=== PATIENT | male | born 1950 | race African-American/Black ===

== ENCOUNTER → 2023-06-29 | Outpatient (CLI) | payer OTHER, SELFPAY ==
--- NOTE | 2023-06-29 08:10 | ECHOD_ITS ---
Reason For Study: ISCHEMIC HEART DISEASE Procedure This was a 2D Doppler, Color Flow transthoracic echocardiogram. Exam performed in department. Left Ventricle Normal LV size. Left ventricular systolic function is normal. The estimated ejection fraction is 55 %. Stage 1 diastolic dysfunction. No regional wall motion abnormalities noted. Right Ventricle Normal RV size. Normal systolic function. Atria Normal left atrium. Normal right atrium. Hypermobile atrial septum. Bubble contrast study negative for right to left interatrial shunt. Tricuspid Valve Normal tricuspid valve. Mild (1+) tricuspid valve insufficiency. Great Vessels Normal aortic root. The pulmonary artery is normal size. Normal inferior vena cava. Pericardium/Pleural No pericardial effusion. Medication 22 gauge I.V. with prn adaptor inserted into left arm. Performed a rapid injection of agitated mix of 9 cc saline and 1cc air to assess for atrial septal defect. MMode/2D Measurements & Calculations LVIDd: 4.3 cm IVSd: 0.94 cm LVOT diam: 2.0 cm LVIDs: 2.8 cm LVPWd: 0.94 cm LVOT area: 3.1 cm2 RVDd: 3.6 cm FS: 34.9 % Ao root diam: 3.8 cm LAV(MOD-bp): 43.0 ml LVAd ap4: 29.3 cm2 LAV(MOD-bp) Indexed: 20.2 ml/m2 LVLd ap4: 7.9 cm LAV(MOD-sp2): 39.1 ml EDV(MOD-sp4): 89.8 ml LAV(MOD-sp4): 44.5 ml EDV(sp4-el): 92.4 ml LVAs ap4: 16.2 cm2 LVLs ap4: 6.3 cm ESV(MOD-sp4): 34.5 ml ESV(sp4-el): 35.2 ml EF(MOD-sp4): 61.5 % EF(sp4-el): 61.9 % SV(MOD-sp4): 55.2 ml SV(MOD-sp2): 47.9 ml LVAd ap2: 26.1 cm2 LVLd ap2: 7.1 cm EDV(MOD-sp2): 78.0 ml EDV(sp2-el): 81.2 ml LVAs ap2: 15.2 cm2 LVLs ap2: 6.6 cm ESV(MOD-sp2): 30.1 ml ESV(sp2-el): 30.0 ml EF(MOD-sp2): 61.4 % SV(sp4-el): 57.1 ml LA A4 area: 17.7 cm2 LA dimension(2D): 3.9 cm TAPSE: 1.9 cm RA A4 area: 16.4 cm2 Time Measurements MV dec time: 0.19 sec Doppler Measurements & Calculations MV E max lane: 65.3 cm/sec Lat Peak E' Lane: 7.9 cm/sec Med Peak E' Lane: 6.5 cm/sec MV A max lane: 86.1 cm/sec E/E' lat: 8.2 E/E' med: 10.1 MV E/A: 0.76 MV dec slope: 342.8 cm/sec2 Ao V2 max: 112.1 cm/sec LV V1 max: 85.4 cm/sec Ao max P.0 mmHg LV V1 max P.9 mmHg Ao V2 mean: 74.7 cm/sec LV V1 mean P.6 mmHg Ao mean P.6 mmHg LV V1 mean: 59.4 cm/sec Ao V2 VTI: 25.8 cm LV V1 VTI: 20.2 cm AV (velocity ratio): 0.78 MAREN(I,D): 2.4 cm2 MAREN(V,D): 2.4 cm2 SV(LVOT): 63.0 ml PA V2 max: 96.5 cm/sec PI end-d lane: 107.0 cm/sec PA max PG (full): 2.[address] max lane: 217.4 cm/sec TR max P.9 mmHg ECHO/Echo Complete Interpretation Summary Hypermobile atrial septum. Normal LV size. Left ventricular systolic function is normal. The estimated ejection fraction is 55 %. Stage 1 diastolic dysfunction. Bubble contrast study negative for right to left interatrial shunt. Ordering Physician: Edgard Sharpe Performed By: Cathi Lee RDCS
[2023-06-29 09:26] LABS: Color, Urine Yellow (Yellow); Glucose, Dipstick Normal (Normal); Ketone-Dipstick Negative (Negative); Leukocyte Esterase-Dipstick Negative /ul (Negative); Nitrite-Dipstick Negative (Negative); Occult Blood-Urine Negative /ul (Negative); Protein-Dipstick Negative (Negative); Specific Gravity, Urine 1.015 (1.002-1.030); Urine Bilirubin Dipstick Negative (Negative); Urine Clarity Clear (Clear); Urine Urobilinogen Normal (Normal)
[2023-06-29 10:03] LABS: AST(SGOT) 28 U/L (15-37); Alanine Aminotransfer ALT/SGPT 27 U/L (16-61); Albumin, Serum 3.9 g/dL (3.2-5.0); Alkaline Phosphatase 60 U/L (45-117); Anion Gap 3 (5-15); BUN 17 mg/dL (7-18); BUN/Creat Ratio 14.5 RATIO (10-20); Calcium,Total 9.1 mg/dL (8.5-10.1); Chloride 105 mmol/L (98-107); Creatinine, Serum 1.17 mg/dL (0.70-1.30); EST Glomerular Filtration Rate 65 mL/min (>60); Est Glom Filt Rate - Afr Amer 78 mL/min (>60); Glucose 170 mg/dL (74-106); Potassium 4.2 mmol/L (3.5-5.1); Protein, Total 7.9 g/dL (6.4-8.2); Sodium Level 137 mmol/L (136-145)
== END | disposition home or self-care (01) ==
LOC: CVS 08:08
PROVIDERS: Visit Provider Chiropractor
DX: E11.9 Type 2 diabetes mellitus without complications (principal); I25.9 Chronic ischemic heart disease, unspecified; Q21.19 Other specified atrial septal defect
CPT/HCPCS: 36415; 80053; 81002; 93306; A4216